=== PATIENT | male | born 1955 | race Caucasian/White ===

== ENCOUNTER 2018-09-10 08:14 | Emergency (ER) | payer OTHER ==
[2018-09-10] MEDS ORDERED: Aspirin 81 MG Tab.Chew PO ONE (08:23)
[2018-09-10] MEDS ORDERED: Morphine 2 MG/ML Syringe ONE (08:27)
[2018-09-10] MEDS ORDERED: Nitroglycerin 0.4 MG Tab.SL SL PRN (08:27)
[2018-09-10] MEDS ORDERED: Morphine 2 MG/ML Syringe IVPUSH PRN (08:40)
[2018-09-10 08:46] LABS: CHLORIDE,CL 103 mEq/L (98-106); SODIUM,NA 141 mEq/L (136-145)
[2018-09-10] MEDS ORDERED: Acetaminophen 325 MG Tab PO ONE (09:14)
[2018-09-10] MEDS ORDERED: Alum Hydrox/Mag Hydrox/Simeth 30 ML, Lidocaine 2% 15 ML PO ONE ×2 (09:14)
[2018-09-10] MEDS ORDERED: Pantoprazole 40 MG Vial IVPUSH SCH (09:45)
[2018-09-10 11:16] VITALS: BP 133/81
--- NOTE | 2018-09-10 11:19 | EDM.PDOC ---
ED HPI GENERAL MEDICAL PROBLEM - General Chief Complaint: Chest Pain Stated Complaint: CP Time Seen by Provider: 09/10/18 08:37 Source of Information: Reports: Patient History Limitations: Reports: No Limitations - History of Present Illness INITIAL COMMENTS - FREE TEXT/NARRATIVE: Patient presents to ER with anterior chest pain. He relates he had the "flu" last evening, had projectile, forceful vomiting x1 but had been very nauseated much of the day. Around 1230 am, patient began experiencing chest pain that is very tight in nature. No shortness of breath. No diaphoresis. He did not sleep much due to the pain. Is experiencing upper quadrant abdominal pain as well. He does have a history of GERD. Was exposed to gastroenteritis. Has low grade fevers today. Denies cough. Onset: Gradual Duration: Hour(s): Location: Reports: Chest, Abdomen Quality: Reports: Ache, Sharp Severity: Moderate Improves with: Reports: None Associated Symptoms: Reports: Chest Pain, Fever/Chills, Nausea/Vomiting. Denies : Diaphoresis, Loss of Appetite, Shortness of Breath Left Chest Pain Score (Numeric/FACES): 1 Headache Pain Score (Numeric/FACES): 3 - Related Data Allergies Allergy/AdvReac Type Severity Reaction Status Date / Time No Known Allergies Allergy Verified 09/10/18 08:50 Home Meds: Home Meds Aspirin [Halfprin] 81 mg PO DAILY 02/18/14 [History] LORazepam [Ativan] 0.25 - 0.5 mg PO Q6H PRN 02/18/14 [History] Losartan [Cozaar] 100 mg PO DAILY 02/18/14 [History] Omeprazole Magnesium [Prilosec Otc] 20 mg PO DAILY 02/18/14 [History] traMADol [Ultram] 50 - 100 mg PO Q4H PRN 02/18/14 [History] Past Medical History HEENT History: Reports: Impaired Vision Cardiovascular History: Reports: Hypertension, Other (See Below) Other Cardiovascular History: CHEST PAIN Gastrointestinal History: Reports: GERD Psychiatric History: Reports: Anxiety - Past Surgical History HEENT Surgical History: Reports: Tonsillectomy GI Surgical History: Reports: Appendectomy, Hernia, Inguinal Musculoskeletal Surgical History: Reports: Other (See Below) Other Musculoskeletal Surgeries/Procedures:: BACK SURGERIES X 3, RIGHT ELBOW SURGERY Social & Family History - Tobacco Use Smoking Status *Q: Never Smoker - Caffeine Use Caffeine Use: Reports: Coffee - Recreational Drug Use Recreational Drug Use: No ED ROS GENERAL - Review of Systems Review Of Systems: See Below Constitutional: Reports: Fever, Chills, Malaise. Denies: Decreased Appetite HEENT: Reports: No Symptoms Respiratory: Denies: Shortness of Breath, Cough Cardiovascular: Reports: Chest Pain. Denies: Edema, Lightheadedness Endocrine: Denies: Fatigue GI/Abdominal: Reports: Abdominal Pain, Nausea, Vomiting. Denies: Constipation, Diarrhea : Reports: No Symptoms Musculoskeletal: Reports: No Symptoms Skin: Reports: No Symptoms Neurological: Reports: No Symptoms ED EXAM, GENERAL - Physical Exam Exam: See Below Exam Limited By: No Limitations General Appearance: Alert, WD/WN, No Apparent Distress Ears: Normal External Exam, Normal TMs Nose: Normal Inspection, Normal Mucosa, No Blood Throat/Mouth: Normal Inspection, Normal Oropharynx Head: Normocephalic Neck: Normal Inspection, Supple, Non-Tender Respiratory/Chest: No Respiratory Distress, Lungs Clear, Normal Breath Sounds, Other (reproducible tenderness to left anterior chest with palpation) Cardiovascular: Regular Rate, Rhythm, No Edema GI/Abdominal: Normal Bowel Sounds, Soft, Tender (bilateral upper quadrants/ midepigastric area) Extremities: Normal Inspection, No Pedal Edema Neurological: Alert, Oriented Skin Exam: Warm, Dry Course - Vital Signs Last Recorded V/S: Last Vital Signs Temp 100.1 F 09/10/18 12:10 Pulse 93 09/10/18 11:15 Resp 16 09/10/18 11:15 BP 133/81 09/10/18 11:15 Pulse Ox 98 09/10/18 11:15 - Orders/Labs/Meds Orders: Active Orders 24 hr Category Date Time Status Oxygen Therapy, ED [RC] ASDIRECTED Care 09/10/18 08:55 Active Chest 2V [CR] Stat Exams 09/10/18 09:05 Taken Labs: Laboratory Tests 09/10/18 09/10/18 09/10/18 Range/Units 08:24 08:24 08:24 WBC 9.2 (5.0-10.0) 10^3/uL RBC 5.90 (4.50-6.00) 10^6/uL Hgb 17.2 (14.0-18.0) g/dL Hct 49.6 (40.0-54.0) % MCV 84.1 (82.0-94.0) fL MCH 29.2 (27.0-32.0) pg MCHC 34.7 (33.0-38.0) g/dL RDW Coeff of Abida 13.9 (11.0-15.0) % Plt Count 194 (150-400) 10^3/uL Neut % (Auto) 88.5 H (35-85) % Lymph % (Auto) 6.4 L (10-55) % Bladen % (Auto) 4.4 (0-16) % Eos % (Auto) 0.5 (0-5) % Baso % (Auto) 0.2 (0-3) % Neut # (Auto) 8.11 H (1.80-7.00) 10^3/uL Lymph # (Auto) 0.59 L (1.00-4.80) 10^3/uL Bladen # (Auto) 0.40 (0.00-0.80) 10^3/uL Eos # (Auto) 0.05 (0.00-0.45) 10^3/uL Baso # (Auto) 0.02 10^3/uL PT 10.6 (9.7-12.3) SEC INR 1.03 (0.92-1.18) APTT 26.3 (23.2-32.3) SEC Sodium 141 (136-145) mEq/L Potassium 4.1 (3.5-5.0) mEq/L Chloride 103 (98-106) mEq/L Carbon Dioxide 26 (21-32) mmol/L BUN 22 H D (7-18) mg/dL Creatinine 1.1 (0.7-1.3) mg/dL Est Cr Clr Drug Dosing 76.06 mL/min Estimated GFR (MDRD) > 60 (>=60) mL/min Glucose 122 H (75-99) mg/dL Calcium 9.3 (8.4-10.1) mg/dL Lactate Dehydrogenase 191 H (100-190) U/L Creatine Kinase 113 (35-232) U/L Troponin I < 0.017 (0.00-0.06) ng/mL Lipase 128 (73-393) U/L 09/10/18 Range/Units 11:30 WBC (5.0-10.0) 10^3/uL RBC (4.50-6.00) 10^6/uL Hgb (14.0-18.0) g/dL Hct (40.0-54.0) % MCV (82.0-94.0) fL MCH (27.0-32.0) pg MCHC (33.0-38.0) g/dL RDW Coeff of Abida (11.0-15.0) % Plt Count (150-400) 10^3/uL Neut % (Auto) (35-85) % Lymph % (Auto) (10-55) % Bladen % (Auto) (0-16) % Eos % (Auto) (0-5) % Baso % (Auto) (0-3) % Neut # (Auto) (1.80-7.00) 10^3/uL Lymph # (Auto) (1.00-4.80) 10^3/uL Bladen # (Auto) (0.00-0.80) 10^3/uL Eos # (Auto) (0.00-0.45) 10^3/uL Baso # (Auto) 10^3/uL PT (9.7-12.3) SEC INR (0.92-1.18) APTT (23.2-32.3) SEC Sodium (136-145) mEq/L Potassium (3.5-5.0) mEq/L Chloride (98-106) mEq/L Carbon Dioxide (21-32) mmol/L BUN (7-18) mg/dL Creatinine (0.7-1.3) mg/dL Est Cr Clr Drug Dosing mL/min Estimated GFR (MDRD) (>=60) mL/min Glucose (75-99) mg/dL Calcium (8.4-10.1) mg/dL Lactate Dehydrogenase (100-190) U/L Creatine Kinase (35-232) U/L Troponin I < 0.017 (0.00-0.06) ng/mL Lipase (73-393) U/L Meds: Medications Discontinued Medications Generic Name Dose Route Start Last Admin Trade Name Freq PRN Reason Stop Dose Admin Acetaminophen 650 mg 09/10/18 09:14 09/10/18 09:18 Tylenol PO 09/10/18 09:15 650 mg NOW ONE Administration Aspirin 324 mg 09/10/18 08:23 09/10/18 08:23 Aspirin PO 09/10/18 08:24 324 mg ONETIME ONE Administration Al Hydroxide/Mg Hydroxide 30 0 ml 09/10/18 09:14 09/10/18 09:19 ml/ Lidocaine HCl 15 ml PO 09/10/18 09:15 45 ml ONETIME ONE Administration Sodium Chloride 1,000 mls @ 999 mls/hr 09/10/18 12:17 09/10/18 12:47 Normal Saline IV 09/10/18 13:17 999 mls/hr .BOLUS ONE Administration Morphine Sulfate Confirm 09/10/18 08:27 09/10/18 09:12 Morphine Administered 09/10/18 08:28 Not Given Dose 2 mg .ROUTE .STK-MED ONE Morphine Sulfate 1 - 5 mg 09/10/18 08:40 09/10/18 08:40 Morphine IVPUSH 1 mg Q15M PRN Administration Pain Nitroglycerin 0.4 mg 09/10/18 08:27 09/10/18 08:27 Nitrostat SL 0.4 mg Q5M PRN Administration Chest Pain - Re-Assessments/Exams Free Text/Narrative Re-Assessment/Exam: 09/10/18 0900 Patient's labs are stable, negative. EKG stable. Did get some relief with morphine. GI cocktail given. Will repeat labs in 3 hours. 09/10/18 12:20 Denies chest pain. Is experiencing an intense headache at present. Temp 100.1. Will give liter of IV fluids. Arrange for cardiolyte on . Departure - Departure Time of Disposition: 12:21 Disposition: Home, Self-Care 01 Condition: Fair Clinical Impression: Atypical chest pain, Gastroenteritis Referrals: Lyndon Rosenbaum MD [Primary Care Provider] - Forms: ED Department Discharge Additional Instructions: 1. Rest 2. Push fluids 3. Tylenol or ibuprofen for fever or headache 4. Cardiolyte stress test on 5. Follow up with Dr. Rosenbaum for persisting concerns - My Orders Last 24 Hours: My Active Orders 09/10/18 08:55 Oxygen Therapy, ED [RC] ASDIRECTED 09/10/18 09:05 Chest 2V [CR] Stat - Assessment/Plan Last 24 Hours: My Active Orders 09/10/18 08:55 Oxygen Therapy, ED [RC] ASDIRECTED 09/10/18 09:05 Chest 2V [CR] Stat
[2018-09-10] MEDS ORDERED: Sodium Chloride 0.9% 1,000 ML IV ONE (12:17)
== END 2018-09-10 14:25 | disposition home or self-care (01) ==
LOC: CC.ED 08:14
DX: R07.89 Other chest pain (principal); K52.9 Noninfective gastroenteritis and colitis, unspecified; I10 Essential (primary) hypertension; Z79.82 Long term (current) use of aspirin; Z79.899 Other long term (current) drug therapy
CPT/HCPCS: 36415; 71046; 80048; 82550; 83615; 83690; 84484; 85025; 85610; 85730; 93005; 96361; 96374; 99285-25; A9270-GY; J2270; J7030

== ENCOUNTER → 2019-05-30 | Day surgery (SDC) | payer OTHER ==
[~2019-05-30] MED LIST: Lactated Ringers 1,000 ML IV SCH; Propofol 200 MG/20 ML SDV IV ONE
[2019-05-30 10:38] VITALS: BP 127/82; PULSE 73
--- NOTE | 2019-05-30 18:52 | OR ---
DATE OF OPERATION: 05/30/2019 PREOPERATIVE DIAGNOSIS: FOLLOWUP POLYPS. POSTOPERATIVE DIAGNOSIS: FOLLOWUP POLYPS. SURGEON: Lyndon Rosenbaum MD PROCEDURE: DIAGNOSTIC COLONOSCOPY. ANESTHESIA: MAC. COMPLICATIONS: None. SPECIMEN: None. FINDINGS: 1. Full-length colonoscopy. 2. Mild sigmoid diverticulosis. RECOMMENDATIONS: Followup colonoscopy in 10 years. INDICATIONS: The patient has a prior colonoscopy with 1 small polyp removed. He is in for a 5-year followup. DESCRIPTION OF PROCEDURE: The patient was prepped and draped, placed in the left lateral decubitus position. A lubricated Olympus colonoscope was inserted and with ease advanced to the cecum. Direct visualization of ileocecal valve and appendiceal orifice was accomplished. The bowel prep was excellent. Upon withdrawal of the scope, throughout the entire length of the colon, I could find no signs of polyps, mass, ulceration, or bleeding sites. No vascular abnormalities or signs of colitis. Mild diverticular disease in the mid-to- distal sigmoid colon without any inflammatory changes. The rectal vault was benign. Retroflexion showed a lot of perianal hemorrhoid disease, otherwise benign. Air was suctioned, scope removed without complication. The patient was stable in the recovery room. NILAY/LARA /[id number]
== END ==
LOC: CC.SDS 08:57
PROVIDERS: ATTEND Family Medicine
DX: Z12.11 Encounter for screening for malignant neoplasm of colon (principal); K57.30 Diverticulosis of large intestine without perforation or abscess without bleeding; K64.9 Unspecified hemorrhoids; K21.9 Gastro-esophageal reflux disease without esophagitis; F41.9 Anxiety disorder, unspecified; I10 Essential (primary) hypertension; G89.29 Other chronic pain; M54.5 Low back pain; M17.10 Unilateral primary osteoarthritis, unspecified knee; Z79.82 Long term (current) use of aspirin; Z86.010 Personal history of colon polyps; Z79.899 Other long term (current) drug therapy; Z90.49 Acquired absence of other specified parts of digestive tract
CPT/HCPCS: G0121; J2704; J7120

== ENCOUNTER 2023-05-10 13:15 | Emergency (ER) | payer OTHER ==
[2023-05-10 13:30] VITALS: BP 130/95; PULSE 99
[2023-05-10 13:55] LABS: APPEARANCE,URINE CLOUDY (CLEAR); BILIRUBIN,URINE LARGE (NEGATIVE); COLOR,URINE RED (YELLOW); GLUCOSE,URINE 100 mg/dL (NEGATIVE); KETONES,URINE 40 mg/dL (NEGATIVE); LEUKOCYTE ESTERASE,URINE LARGE (NEGATIVE); NITRITE,URINE POSITIVE (NEGATIVE); OCCULT BLOOD,URINE LARGE (NEGATIVE); PH,URINE 8.5 (4.5-8.0); PROTEIN,URINE >=300 mg/dL (NEGATIVE)
[2023-05-10 14:01] LABS: BACTERIA,URINE NOT SEEN /HPF (NOT SEEN); EPITHELIAL CELLS,URINE NOT SEEN /HPF (NOT SEEN); MUCUS,URINE NOT SEEN /HPF (NOT SEEN); RBC,URINE >100 /HPF (0-5)
[2023-05-10 14:10] LABS: BASOPHILS ABSOLUTE AUTO 0.02 10^3/uL (0.00-0.50); BASOPHILS PERCENT AUTO 0.3 % (0-1); EOSINOPHILS ABSOLUTE AUTO 0.01 10^3/uL (0.00-1.50); EOSINOPHILS PERCENT AUTO 0.1 % (0-6); HEMATOCRIT 38.9 % (42.0-52.0); HEMOGLOBIN 12.7 g/dL (14.0-18.0); IMMATURE GRAN ABSOLUTE AUTO 0.07 10^3/uL (0.00-0.49); IMMATURE GRAN PERCENT AUTO 0.9 % (0.0-4.9); LYMPHOCYTES ABSOLUTE AUTO 0.81 10^3/uL (0.60-5.00); LYMPHOCYTES PERCENT AUTO 10.5 % (24-44); MEAN CORPUSCULAR HEMOGLOBIN 28.7 pg (27.0-32.0); MEAN CORPUSCULAR HGB CONC 32.6 g/dL (32.0-36.0); MEAN CORPUSCULAR VOLUME 87.8 fL (83.0-97.0); MONOCYTES ABSOLUTE AUTO 0.39 10^3/uL (0.00-1.50); MONOCYTES PERCENT AUTO 5.1 % (0-10); NEUTROPHILS ABSOLUTE AUTO 6.38 x10^3/uL (1.80-8.00); NEUTROPHILS PERCENT AUTO 83.1 % (41-71); PLATELET COUNT,PLT 224 10^3/uL (150-400); RED BLOOD CELL COUNT 4.43 x10^6/uL (4.50-6.00); WHITE BLOOD CELL COUNT,WBC 7.7 10^3/uL (4.0-11.0)
[2023-05-10 14:23] LABS: ALBUMIN 3.1 g/dL (3.4-5.0); BILIRUBIN TOTAL 0.4 mg/dL (0.0-1.0); CALCIUM 8.6 mg/dL (8.4-10.1); CREATININE 1.3 mg/dL (0.7-1.3); EST CRCL DRUG DOSING (CG) 60.34 mL/min; POTASSIUM,K 3.7 mEq/L (3.5-5.0); PROTEIN TOTAL,TP 6.5 g/dL (6.4-8.2)
[2023-05-10] MEDS: cefTRIAXone 1 GM Vial IM ONE (14:38)
== END 2023-05-10 16:45 | disposition home or self-care (01) ==
LOC: CC.ED 13:15
DX: N30.01 Acute cystitis with hematuria (principal); I10 Essential (primary) hypertension; K21.9 Gastro-esophageal reflux disease without esophagitis; Z90.49 Acquired absence of other specified parts of digestive tract; Z79.899 Other long term (current) drug therapy
CPT/HCPCS: 36415; 51702; 80053; 81001; 85025; 87086; 96372; 99283; J0696